=== PATIENT | female | born 1970 | race Two or more races ===

== ENCOUNTER 2019-02-01 12:52 | Emergency (ER) | payer MEDICAID ==
[~2019-02-01] VITALS: Ht 154.9 cm; Wt 68.0 kg
[2019-02-01 13:40] VITALS: BP 142/77
[2019-02-01] MEDS ORDERED: HYDROcodone-ACET 5/325MG TAB PO ONE (14:15)
== END 2019-02-01 14:24 | disposition home or self-care (01) ==
LOC: ER 12:52 → EDBD 12:52 → ER 14:24
DX: S13.4XXA Sprain of ligaments of cervical spine, initial encounter (principal); R51 Headache; X58.XXXA Exposure to other specified factors, initial encounter; Y93.89 Activity, other specified; Y92.89 Other specified places as the place of occurrence of the external cause; Y99.8 Other external cause status
CPT/HCPCS: 70450; 72125

== ENCOUNTER 2019-02-02 11:30 | Emergency (ER) | payer MEDICAID ==
[~2019-02-02] VITALS: Ht 154.9 cm; Wt 68.0 kg
[2019-02-02 11:53] VITALS: BP 115/52
[2019-02-02] MEDS: KETOROLAC TROMETH 60MG/2ML VIAL IM ONE (13:15)
[2019-02-02] MEDS: METHOCARBAMOL 500 MG TAB PO ONE (13:15)
== END 2019-02-02 13:44 | disposition home or self-care (01) ==
LOC: ER 11:33
DX: S16.1XXA Strain of muscle, fascia and tendon at neck level, initial encounter (principal); X58.XXXA Exposure to other specified factors, initial encounter; Y93.I1 Activity, roller coaster riding; Y92.89 Other specified places as the place of occurrence of the external cause; Y99.8 Other external cause status
CPT/HCPCS: 96372; 99283; J1885

== ENCOUNTER 2023-08-27 12:29 | Emergency (ER) | payer MEDICAID ==
[~2023-08-27] VITALS: Ht 157.5 cm; Wt 72.7 kg
[2023-08-27] MEDS ORDERED: SODIUM CHLORIDE 0.9% 1,000 ML IV ONE (13:15)
[2023-08-27] MEDS ORDERED: ONDANSETRON HCL 4 MG/2 ML VIAL IV ONE (13:15)
[2023-08-27] MEDS ORDERED: MECLIZINE HCL 25 MG TAB PO ONE (13:15)
[2023-08-27] MEDS ORDERED: ACETAMINOPHEN 325 MG TAB PO ONE (13:15)
[2023-08-27 13:22] VITALS: TEMP 97.8
[2023-08-27 13:36] LABS: Basophils # (auto) 0.1 10 ^3/uL (0-0.2); Basophils % (auto) 0.8 % (0.0-2.0); Eosinophils # (auto) 0.1 10 ^3/uL (0-0.8); Eosinophils % (auto) 0.7 % (0.0-7.0); Hematocrit 40.5 % (36.0-46.0); Hemoglobin 13.5 g/dL (12.2-16.2); Lymphocytes # (auto) 1.2 10 ^3/uL (0.4-5.4); Lymphocytes % (auto) 14.8 % (10.0-50.0); Mean Corpuscular Hemoglobin 28.8 pg (28.0-32.0); Mean Corpuscular Hgb Conc. 33.2 g/dL (32.0-36.0); Mean Corpuscular Volume 86.8 fL (80.0-100.0); Monocytes # (auto) 0.3 10 ^3/uL (0-1.3); Neutrophils # (auto) 6.3 10 ^3/uL (1.6-8.6); Neutrophils % (auto) 79.7 % (37.0-80.0); Red Blood Cells 4.67 10^6/uL (4.0-5.20); Red Cell Distribution Width 14.5 % (11.8-14.3); White Blood Cell 7.9 10^3/uL (4.4-10.8)
[2023-08-27 13:46] LABS: Urine Epithelial Cast None Seen /hpf (<5)
[2023-08-27 14:02] LABS: Urine Bacteria FEW /hpf (None Seen); Urine Blood 1+ /uL (Negative); Urine Clarity Clear (Clear); Urine Color Colorless (Yellow); Urine Protein, UAD Negative (Negative); Urine Specific Gravity 1.022 (1.001-1.035); Urine Urobilinogen Normal (Negative); Urine WBC 3 /hpf (0 - 5); Urine pH 5.5 (5.0-8.0)
[2023-08-27 14:04] LABS: Alanine Aminotransferase 27 U/L (7-40); Albumin 4.4 g/dL (3.2-4.8); Alkaline Phosphatase 80 U/L (46-116); Anion Gap 10 (5-15); Aspartate Aminotransferase 22 U/L (13-40); BUN/Creatinine Ratio 17.1 (10.0-20.0); Blood Urea Nitrogen 12 mg/dL (9-23); Carbon Dioxide 21 mmol/L (20-30); Chloride 105 mmol/L (98-107); Glucose 128 mg/dL (74-106); Lipase 40 U/L (12-53); Potassium 3.7 mmol/L (3.5-5.1); Sodium 136 mmol/L (136-145)
[2023-08-27 14:05] LABS: Bilirubin, Total 0.6 mg/dL (0.2-1.0)
[2023-08-27] MEDS ORDERED: cefTRIAXone 1GM/50ML D5W 50 ML IV ONE (18:00)
[2023-08-27] MEDS ORDERED: CEPH500C PO (18:50)
[2023-08-27 18:56] VITALS: BP 146/54; PULSE 55; RESP 16; O2SAT 96
== END 2023-08-27 18:53 | disposition home or self-care (01) ==
LOC: ER 12:29
DX: R42 Dizziness and giddiness (principal); R51.9 Headache, unspecified; N39.0 Urinary tract infection, site not specified
CPT/HCPCS: 36415; 70450; 71045; 80053; 81001; 82962; 83690; 84484; 85025; 93005; 96361; 96365; 96375; 99285; J0696; J2405; J7030; J8597